=== PATIENT | female | born 1975 | race Caucasian/White ===

== ENCOUNTER 2024-07-26 11:04 | Emergency (ER) | payer SELFPAY ==
[~2024-07-26] VITALS: Ht 160 cm; Wt 81.6 kg
[~2024-07-26 11:04] MED LIST: BUSPIRONE HCL5 MG PO; CIPRO500 MG PO; DICYCLOMINE HCL10 MG PO; DICYCLOMINE HCL20 MG PO; METRONIDAZOLE500 MG PO; PROMETHAZINE HC25 M1 PO; ULTRAM 50MG50 MG PO
[2024-07-26 11:10] VITALS: TEMP 98.2
[2024-07-26] MEDS: TRAMADOL HCL 50 MG TAB PO ONE (11:35)
[2024-07-26] MEDS ORDERED: ULTRAM 50MG50 MG PO (13:05)
[2024-07-26] MEDS ORDERED: HYDROCODON-ACE1 EA11 PO (13:50)
[2024-07-26] MEDS ORDERED: PROMETHAZINE HC25 M1 PO (13:52)
[2024-07-26 14:00] VITALS: PULSE 98; RESP 16; O2SAT 97
== END 2024-07-26 14:00 | disposition home or self-care (01) ==
LOC: ER 11:29
DX: S92.321A Displaced fracture of second metatarsal bone, right foot, initial encounter for closed fracture (principal); V03.90XA Pedestrian on foot injured in collision with car, pick-up truck or van, unspecified whether traffic or nontraffic accident, initial encounter; Y92.89 Other specified places as the place of occurrence of the external cause; N80.9 Endometriosis, unspecified; Z87.19 Personal history of other diseases of the digestive system
CPT/HCPCS: 99283

== ENCOUNTER 2024-08-18 17:41 | Emergency (ER) | payer SELFPAY ==
[~2024-08-18] VITALS: Ht 160 cm; Wt 81.6 kg
[~2024-08-18 17:41] MED LIST changes: +HYDROCODON-ACE1 EA11 PO
[2024-08-18 18:05] VITALS: TEMP 98.5
[2024-08-18] MEDS ORDERED: ONDANSETRON HCL INJ 2MG/ML 2ML 2 MG/ML VIAL IV STA (18:08)
[2024-08-18] MEDS ORDERED: Morphine 4mg INJECTION 4 MG/ML INJ IV STA ×2 (18:08→22:35)
[2024-08-18] MEDS ORDERED: SODIUM CHLORIDE 0.9% 1000ML 1,000 ML IV STA (18:08)
[2024-08-18 18:30] LABS: BASOPHILS % 0.4 % (0.0-1.0); EOSINOPHILS # (AUTO) 0.1 (0.0-0.4); EOSINOPHILS % 2.5 % (0.0-6.0); HEMATOCRIT 42.9 % (34.2-44.1); HEMOGLOBIN 14.3 g/dL (12.0-16.0); LYMPHOCYTES # (AUTO) 1.8 (1.0-3.2); LYMPHOCYTES % 34.9 % (18.0-39.1); MEAN CORPUSCULAR HEMOGLOBIN 31.5 pg (28-32); MEAN CORPUSCULAR HGB CONC 33.3 g/dL (31-35); MEAN CORPUSCULAR VOLUME 94.5 fL (81-99); MONOCYTES # (AUTO) 0.3 (0.2-0.8); MONOCYTES % 6.1 % (4.4-11.3); NEUTROPHILS # (AUTO) 2.9 (2.1-6.9); NEUTROPHILS % 55.7 % (38.7-80.0); PLATELET COUNT 299 x10e3/uL (140-360); RED BLOOD COUNT 4.54 x10e6/uL (3.6-5.1); RED CELL DISTRIBUTION WIDTH 12.6 % (11.7-14.4); WHITE BLOOD COUNT 5.22 x10e3/uL (4.8-10.8)
[2024-08-18 18:52] LABS: ALBUMIN 4.8 g/dL (3.5-5.0); ALBUMIN/GLOBULIN RATIO 1.5 (0.8-2.0); ANION GAP 16.2 mmol/L (8-16); BILIRUBIN,TOTAL 0.3 mg/dL (0.2-1.2); CREATININE, SERUM 0.76 mg/dL (0.57-1.11); POTASSIUM 4.2 mmol/L (3.5-5.1); TOTAL PROTEIN 7.9 g/dL (6.5-8.1)
[2024-08-18] MEDS ORDERED: IOPAMIDOL 370 MG/ML 100 ML INFUS..BTL INJ ONE ×2 (19:23→21:40)
[2024-08-18 20:11] LABS: BILIRUBIN,URINE NEGATIVE (NEGATIVE); CLARITY,URINE CLOUDY (CLEAR); COLOR,URINE ORANGE (YELLOW); GLUCOSE, URINE NEGATIVE (NEGATIVE); KETONES,URINE NEGATIVE (NEGATIVE); LEUKOCYTE ESTERASE ,URINE NEGATIVE (NEGATIVE); NITRITE,URINE NEGATIVE (NEGATIVE); PH,URINE 5.5 (5 - 7); PROTEIN,URINE DIPSTICK 1+ (NEGATIVE); URINE UROBILINOGEN 0.2 mg/dL (0.2 - 1)
[2024-08-18 20:12] LABS: PREGNANCY TEST, URINE NEGATIVE (NEGATIVE)
[2024-08-18] MEDS: PROMETHAZINE 25MG/ NS 50ML (IV) IV STA (20:16)
[2024-08-18] MEDS: KETOROLAC TROMETHAMINE 30 MG/ML VIAL IV STA (20:16)
[2024-08-18 20:34] LABS: BACTERIA,URINE MODERATE /HPF; EPITHELIAL CELLS,URINE FEW /LPF; RBC,URINE >50 /HPF (0-5); WBC,URINE (MAN) 0-5 /HPF (0-5)
[2024-08-18] MEDS: DICYCLOMINE HCL 20 MG/2 ML VIAL IM STA (21:25)
[2024-08-18] MEDS ORDERED: NITROGLYCERIN 2% OINT 1 GM PKT TOP STA (22:09)
[2024-08-18 23:29] LABS: BASOPHILS % 0.4 % (0.0-1.0); EOSINOPHILS # (AUTO) 0.1 (0.0-0.4); EOSINOPHILS % 1.6 % (0.0-6.0); HEMATOCRIT 39.6 % (34.2-44.1); HEMOGLOBIN 13.4 g/dL (12.0-16.0); LYMPHOCYTES # (AUTO) 1.8 (1.0-3.2); LYMPHOCYTES % 35.8 % (18.0-39.1); MEAN CORPUSCULAR HEMOGLOBIN 31.4 pg (28-32); MEAN CORPUSCULAR HGB CONC 33.8 g/dL (31-35); MEAN CORPUSCULAR VOLUME 92.7 fL (81-99); MONOCYTES # (AUTO) 0.3 (0.2-0.8); MONOCYTES % 5.6 % (4.4-11.3); NEUTROPHILS # (AUTO) 2.8 (2.1-6.9); NEUTROPHILS % 56.6 % (38.7-80.0); PLATELET COUNT 271 x10e3/uL (140-360); RED BLOOD COUNT 4.27 x10e6/uL (3.6-5.1); RED CELL DISTRIBUTION WIDTH 12.9 % (11.7-14.4)
[2024-08-18 23:57] LABS: CREATINE KINASE 32 IU/L (29-168)
[2024-08-19 00:03] LABS: TROPONIN I < 0.001 ng/mL (0-0.300)
[2024-08-19 00:20] VITALS: PULSE 77; RESP 20; O2SAT 99
[2024-08-19] MEDS ORDERED: AMOX TR-K CLV1 EAC2 PO (00:21)
== END 2024-08-19 00:23 | disposition home or self-care (01) ==
LOC: ER 17:53
DX: K62.5 Hemorrhage of anus and rectum (principal); R07.89 Other chest pain; R10.30 Lower abdominal pain, unspecified; N80.9 Endometriosis, unspecified; Z87.19 Personal history of other diseases of the digestive system
CPT/HCPCS: 36415; 74177; 80053; 81001; 81025; 82550; 83690; 84484; 85025; 93005; 99284; J0500; J1885; J2470; J2550; Q9967

== ENCOUNTER 2025-01-17 19:38 | Emergency (ER) | payer SELFPAY ==
[~2025-01-17] VITALS: Ht 160 cm; Wt 81.6 kg
[~2025-01-17 19:38] MED LIST changes: +AMOX TR-K CLV1 EAC2 PO
[2025-01-17 19:45] VITALS: PULSE 99; RESP 18; TEMP 97.7
[2025-01-17] MEDS: LIDOCAINE HCL 1% LOCAL INJ 20 ML VIAL INJ STA (20:38)
[2025-01-17] MEDS: PROMETHAZINE HCL (IM) 25 MG/ML VIAL IM STA (20:38)
[2025-01-17 21:12] VITALS: BP 137/82; PULSE 91; RESP 18; O2SAT 99
== END 2025-01-17 21:14 | disposition home or self-care (01) ==
LOC: ER 19:44
DX: K04.7 Periapical abscess without sinus (principal); R11.0 Nausea; R51.9 Headache, unspecified; N80.9 Endometriosis, unspecified; Z90.49 Acquired absence of other specified parts of digestive tract; Z90.710 Acquired absence of both cervix and uterus; Z88.5 Allergy status to narcotic agent; Z88.8 Allergy status to other drugs, medicaments and biological substances
CPT/HCPCS: 99282; J2003; J2550